=== PATIENT | female | born 1965 ===

== ENCOUNTER 2019-04-13 20:24 | Emergency (ER) | payer OTHER ==
--- NOTE | 2019-04-13 20:59 | UC ---
Ear Complaint HPI - HPI Summary HPI Summary: Patient is a 53-year-old female that last night had the onset of allergy-type symptoms. She had nasal congestion sinus pressure and pain as well as itchy eyes. Today she has had bilateral right greater than left tinnitus. She has decreased hearing in her right ear. It is not very painful. She has no headache chest pain shortness of breath today. - History of Current Complaint Chief Complaint: UCEar Stated Complaint: EAR COMPLAINT Time Seen by Provider: 04/13/19 20:46 Hx Obtained From: Patient Onset/Duration: Gradual Onset, Lasting Hours Severity Initially: Mild Severity Currently: Moderate Pain Intensity: 0 Pain Scale Used: 0-10 Numeric Associated Signs/Symptoms: Positive: Hearing Loss, URI Symptoms - Allergies/Home Medications Allergies/Adverse Reactions: Allergies Allergy/AdvReac Type Severity Reaction Status Date / Time strawberry Allergy hives and Verified 04/13/19 20:36 skin infection aspirin AdvReac excessive Verified 04/13/19 20:36 bleeding Home Medications: Home Medications Guaifen/Phenyleph/Acetaminophn [Tylenol Sinus Severe Caplet] 2 each PO PRN 04/13 [History] PMH/Surg Hx/FS Hx/Imm Hx Previously Healthy: Yes - Surgical History Surgical History: Yes Surgery Procedure, Year, and Place: 3 feet of small intestines removed - Family History Known Family History: Negative: Cardiac Disease, Hypertension, Diabetes - Social History Alcohol Use: None Substance Use Type: None Smoking Status (MU): Never Smoked Tobacco Review of Systems All Other Systems Reviewed And Are Negative: Yes Constitutional: Positive: Negative Skin: Positive: Negative ENT: Positive: Other - tinnitus/hearing loss Respiratory: Positive: Negative Cardiovascular: Positive: Negative Gastrointestinal: Positive: Negative Genitourinary: Positive: Negative Motor: Positive: Negative Neurovascular: Positive: Negative Musculoskeletal: Positive: Negative Neurological: Positive: Negative Psychological: Positive: Negative Physical Exam Triage Information Reviewed: Yes Appearance: Well-Appearing, No Pain Distress, Well-Nourished Vital Signs: Initial Vital Signs Temp 97.3 F 04/13/19 20:31 Pulse 92 04/13/19 20:31 Resp 16 04/13/19 20:31 BP 158/93 04/13/19 20:31 Pulse Ox 100 04/13/19 20:31 Vital Signs Reviewed: Yes Eyes: Positive: Conjunctiva Clear ENT: Positive: Nasal congestion, TM bulging - R>L. Negative: Hearing grossly normal - decreased hearing right ear, Nasal drainage Neck: Positive: Supple, Nontender, No Lymphadenopathy Respiratory: Positive: Lungs clear, Normal breath sounds, No respiratory distress, No accessory muscle use Cardiovascular: Positive: RRR, No Murmur Musculoskeletal: Positive: ROM Intact, No Edema Neurological: Positive: Alert Psychological Exam: Normal Skin Exam: Normal Ear Complaint Course/Dx - Differential Dx/Diagnosis Provider Diagnosis: Serous otitis media Discharge ED - Sign-Out/Discharge Documenting (check all that apply): Patient Departure All imaging exams completed and their final reports reviewed: No Studies - Discharge Plan Condition: Stable Disposition: HOME Patient Education Materials: Serous Otitis Media (ED) Referrals: No Primary Care Phys,NOPCP [Primary Care Provider] - Additional Instructions: saline nasal spray soraya or claritin recheck in 1-2 weeks BP high here and should be followed up - Billing Disposition and Condition Condition: STABLE Disposition: Home
== END 2019-04-13 21:08 | disposition home or self-care (01) ==
LOC: UCEAST 20:24
DX: H65.93 Unspecified nonsuppurative otitis media, bilateral (principal); R09.81 Nasal congestion; Z91.018 Allergy to other foods; Z88.6 Allergy status to analgesic agent
CPT/HCPCS: 99201; G0463